=== PATIENT | male | born 1975 | race Caucasian/White ===

== ENCOUNTER 2017-12-19 09:25 | Emergency (ER) | payer BC, OTHER ==
--- NOTE | 2017-12-19 09:41 | ER Document Report ---
ED Medical Screen (RME) - General Chief Complaint: Dizziness Stated Complaint: POSSIBLE SEIZURE Time Seen by Provider: 12/19/17 09:38 Notes: 42 years old male presents today with an episode of rigidity of entire body, happened last . Which is 5 days ago. He had that his daughter's dog got into an accident, he got up to go, I asked his to join while he was trying to dress standing he became very stiff both upper limbs and lower limbs and stabbing standing position. The knee came around and repeatedly had 2 or 3 episodes for about 20 minutes. Since then he never had another episode. Never had a previous episodes either. No history of any seizure disorder. But has anxiety. No incontinence of urine or feces. No convulsive movements As a child he was investigated seizure activities but never been diagnosed. His mom has seizure disorder TRAVEL OUTSIDE OF THE [place] IN LAST 30 DAYS: No - Related Data Allergies/Adverse Reactions: No Known Allergies Allergy (Unverified 12/19/17 09:27) Past Medical History - Social History Chew tobacco use (# tins/day): No Frequency of alcohol use: Rare Drug Abuse: None Renal/ Medical History: Denies: Hx Peritoneal Dialysis
[2017-12-19 10:07] LABS: ABSOLUTE EOSINOPHILS # (AUTO) 0.1 10^3/uL (0.0-0.6); ABSOLUTE MONOCYTES (AUTO) 0.6 10^3/uL (0.1-1.4); BASOPHILS % (AUTO) 0.3 % (0-2); EOSINOPHILS % (AUTO) 1.6 % (0-6); HEMATOCRIT 42.5 % (37.9-51.0); HEMOGLOBIN 14.4 g/dL (13.5-17.0); LYMPHOCYTES % (AUTO) 25.5 % (13-45); MEAN CORPUSCULAR HEMOGLOBIN 32.3 pg (27.0-33.4); MEAN CORPUSCULAR HGB CONC 33.9 g/dL (32.0-36.0); MEAN CORPUSCULAR VOLUME 95 fl (80-97); MONOCYTES % (AUTO) 7.7 % (3-13); PLATELET COUNT 229 10^3/uL (150-450); RED BLOOD COUNT 4.47 10^6/uL (4.35-5.55); RED CELL DISTRIBUTION WIDTH 12.9 % (11.5-14.0); SEGMENTED NEUTROPHILS % (AUTO) 64.9 % (42-78); TOTAL CELLS COUNTED % (AUTO) 100 %; WHITE BLOOD COUNT 7.7 10^3/uL (4.0-10.5)
[2017-12-19 10:24] LABS: ALANINE AMINOTRANSFERASE 25 U/L (21-72); ALBUMIN 4.2 g/dL (3.5-5.0); ALKALINE PHOSPHATASE 46 U/L (38-126); ANION GAP 10 (5-19); ASPARTATE AMINO TRANSFERASE 19 U/L (17-59); BILIRUBIN,DIRECT 0.3 mg/dL (0.0-0.4); BILIRUBIN,TOTAL 0.4 mg/dL (0.2-1.3); BLOOD UREA NITROGEN 11 mg/dL (7-20); CALCIUM 9.8 mg/dL (8.4-10.2); CARBON DIOXIDE 29 mmol/L (22-30); CHLORIDE 108 mmol/L (98-107); GLUCOSE 101 mg/dL (75-110); SODIUM 146.5 mmol/L (137-145)
--- NOTE | 2017-12-19 10:42 | ER Document Report ---
ED General - General Chief Complaint: Dizziness Stated Complaint: POSSIBLE SEIZURE Time Seen by Provider: 12/19/17 09:38 Notes: This is a 42-year-old male to the emergency department chief complaint of possible seizure 5 days ago. Patient states that his daughter called in a panic because her daughter's dog was hit by car. States that he hung up the phone and was going to get in the car but before he was able leave the house began to feel numbness and tingling in his bilateral upper extremities. States that his face got numb. Became a little confused but did not pass out. Remembers everything. States that his face felt like it was twisting. Slowly patient went back to normal. Was able to get in the car and go visit his daughter and take care when needed to be taken care of. Has not had any recurrence of that but was nervous that he might of had a seizure. States that his mom was not epileptic and when she had a seizure it always looked like what he experienced. Denies any head or head trauma. Denies any persistent weakness of the upper lower extremity. Does have some dizziness on occasion but none at this time. TRAVEL OUTSIDE OF THE [place] IN LAST 30 DAYS: No - HPI Onset: Last week Onset/Duration: Better - Related Data Allergies/Adverse Reactions: No Known Allergies Allergy (Unverified 12/19/17 09:27) Past Medical History - General Information source: Patient - Social History Smoking Status: Former Smoker Chew tobacco use (# tins/day): No Frequency of alcohol use: Rare Drug Abuse: None Lives with: Spouse/Significant other Family History: Reviewed & Not Pertinent Patient has suicidal ideation: No Patient has homicidal ideation: No - Medical History Medical History: Negative - Past Medical History Cardiac Medical History: Reports: None Renal/ Medical History: Denies: Hx Peritoneal Dialysis Review of Systems - Review of Systems Constitutional: denies: Fever, Malaise, Weakness EENT: denies: Blurred vision, Difficulty swallowing, Throat swelling, Mouth pain Cardiovascular: denies: Chest pain, Palpitations, Heart racing, Dyspnea, Syncope Respiratory: denies: Cough, Hurts to breathe, Short of breath, Wheezing Gastrointestinal: denies: Abdominal pain, Diarrhea, Nausea, Vomiting Genitourinary: denies: Burning, Dysuria, Frequency, Flank pain Male Genitourinary: No symptoms reported Musculoskeletal: No symptoms reported. denies: Back pain, Joint pain, Muscle pain, Leg swelling Skin: denies: Dryness, Lesions, Lumps, Rash Hematologic/Lymphatic: denies: Anemia, Blood clots, Easy bleeding, Easy bruising Neurological/Psychological: See HPI, Numbness. denies: Weakness, Gait changes, Lost consciousness, Headaches Physical Exam - Vital signs Vitals: Temp Pulse Resp BP Pulse Ox 98.9 F 62 16 140/99 H 100 12/19/17 09:30 12/19/17 09:30 12/19/17 09:30 12/19/17 09:30 12/19/17 09:30 Interpretation: Normal - General General appearance: Appears well, Alert - HEENT Head: Normocephalic, Atraumatic Eyes: Normal Pupils: PERRL - Respiratory Respiratory status: No respiratory distress Chest status: Nontender Breath sounds: Normal Chest palpation: Normal - Cardiovascular Rhythm: Regular Heart sounds: Normal auscultation Murmur: No - Abdominal Inspection: Normal Distension: No distension Bowel sounds: Normal Tenderness: Nontender Organomegaly: No organomegaly - Back Back: Normal, Nontender - Extremities General upper extremity: Normal inspection, Nontender, Normal color, Normal ROM , Normal temperature General lower extremity: Normal inspection, Nontender, Normal color, Normal ROM , Normal temperature, Normal weight bearing. No: Artur's sign - Neurological Neuro grossly intact: Yes Cognition: Normal Orientation: AAOx4 N[place] Coma Scale Eye Opening: Spontaneous [place] Coma Scale Verbal: Oriented [place] Coma Scale Motor: Obeys Commands [place] Coma Scale Total: 15 Speech: Normal Cranial nerves: Normal Cerebellar coordination: Normal. No: Gait ataxia Motor strength normal: LUE, RUE, LLE, RLE Additional motor exam normals: Equal instructional design technologist. No: Pronator drift, Weakness, Hemiplegia Sensory: Normal - Psychological Associated symptoms: Normal affect, Normal mood - Skin Skin Temperature: Warm Skin Moisture: Dry Skin Color: Normal Course - Re-evaluation Re-evalutation: 12/19/17 14:40 Labs are completely normal. Head CT is negative. More likely patient had a hyperventilatory issue. Explained the physiology behind hyperventilatory syndrome and paresthesias associated with it. Offered patient an MRI of the brain as well but he has decided the MRI would likely be very low yield as well. At this time will discharge. Giving strict warning signs. Return if any worsening symptoms or concerns - Vital Signs Vital signs: Temp Pulse Resp BP Pulse Ox 98.9 F 62 16 140/99 H 100 12/19/17 09:30 12/19/17 09:30 12/19/17 09:30 12/19/17 09:30 12/19/17 09:30 - Laboratory Result Diagrams: 12/19/17 09:47 12/19/17 09:47 Laboratory results interpreted by me: 12/19/17 09:47 Sodium 146.5 H Chloride 108 H Discharge - Discharge Clinical Impression: Paresthesias/numbness Condition: Good Disposition: HOME, SELF-CARE Instructions: Hyperventilation ([facility]), Numbness or Paresthesia ([facility]) Additional Instructions: In the event that you develop any worsening symptoms please return immediately. Please follow-up with your regular doctor for routine scheduled health maintenance. We did discuss that if the symptoms persist she may benefit from having an MRI to look for other pathologies. Forms: Return to Work
--- NOTE | 2017-12-19 10:45 | RADIOLOGY REPORT (SQ) ---
EXAM DESCRIPTION: CT HEAD WITHOUT COMPLETED DATE/TIME: 12/19/2017 10:37 am REASON FOR STUDY: Seizure-like activity COMPARISON: CT brain 03/29/2008 TECHNIQUE: Axial images acquired through the brain without intravenous contrast. Images reviewed wi th bone, brain and subdural windows. Additional sagittal and coronal reconstructions were generated. Images stored on PACS. All CT scanners at this facility use dose modulation, iterative reconstruction, and/or weight based d osing when appropriate to reduce radiation dose to as low as reasonably achievable (ALARA). [facility]: Dose Right [facility]: CareDose [facility]: Dose Right [facility]: Teradose 4D [facility]: iPrint RADIATION DOSE: CT Rad equipment meets quality standard of care and radiation dose reduction techniq ues were employed. CTDIvol: 53.2 mGy. DLP: 1044 mGy-cm. mGy. LIMITATIONS: None. FINDINGS: VENTRICLES: Normal size and contour. CEREBRUM: No masses. No hemorrhage. No midline shift. No evidence for acute infarction. Normal gra y/white matter differentiation. No areas of low density in the white matter. CEREBELLUM: No masses. No hemorrhage. No alteration of density. No evidence for acute infarction. EXTRAAXIAL SPACES: No fluid collections. No masses. ORBITS AND GLOBE: No intra- or extraconal masses. Normal contour of globe without masses. CALVARIUM: No fracture. PARANASAL SINUSES: No fluid or mucosal thickening. SOFT TISSUES: No mass or hematoma. OTHER: No other significant finding. IMPRESSION: NORMAL BRAIN CT WITHOUT CONTRAST. EVIDENCE OF ACUTE STROKE: NO. COMMENT: Quality ID # [id number]: Final reports with documentation of one or more dose reduction techniques (e.g., Automated exposure control, adjustment of the mA and/or kV according to patient size, use of iterative reconstruction technique) TECHNICAL DOCUMENTATION: JOB ID: [id number] [employer]- All Rights Reserved Reading location - IP/workstation name: [email or web address]
[2017-12-19 11:56] VITALS: BP 140/99
== END 2017-12-19 11:58 | disposition home or self-care (01) ==
LOC: ER 09:25
DX: R20.2 Paresthesia of skin (principal); R42 Dizziness and giddiness
CPT/HCPCS: 36415; 70450; 80053; 83735; 85025; 99284

== ENCOUNTER → 2020-06-07 | Outpatient (CLI) | payer BC ==
[~2020-06-07] MED LIST: COVID-19 VACCINE (PFIZER)/PF 30 MCG/0.3 ML VIAL IM ONE; EPINEPHRINE INJ/PF 1 MG/1 ML AMPULE IM PRN
== END ==
LOC: EMPHEALTH 09:58
PROVIDERS: ATTEND Internal Medicine
DX: Z23 Encounter for immunization (principal)
CPT/HCPCS: 91300